=== PATIENT | male | born 1995 | race Caucasian/White ===

== ENCOUNTER 2020-10-05 16:05 | Outpatient (REF) | payer OTHER, SELFPAY ==
--- NOTE | 2020-10-05 17:39 | PFT_ITS ---
FLOWS: FEV1 of 109% of predicted at 4.52 L. FVC 102% predicted at 5.04 L. FEV1 to FVC ratio of 0.90. No bronchodilator response. LUNG VOLUMES: Total lung capacity 103% of predicted at 6.31 L. Residual volume 86% of predicted at 1.09 L. Slow vital capacity 108% of predicted at 5.22 L. Expiratory reserve volume 48% of predicted at 0.76 L. Diffusion capacity is normal. IMPRESSION: No obstructive or restrictive ventilatory defect. No bronchodilator response. Decreased expiratory reserve volume suggests extrathoracic restriction likely secondary to abdominal obesity. Michael Davis MD AP/MODL / [id number]
== END 2020-10-05 16:06 | disposition home or self-care (01) ==
LOC: HO.RESP 16:05
PROVIDERS: PCP Internal Medicine; Visit Provider Internal Medicine
DX: R05 Cough (principal)
CPT/HCPCS: 94060; 94727; 94729

== ENCOUNTER 2020-10-12 14:54 | Outpatient (REF) | payer OTHER, SELFPAY ==
--- NOTE | 2020-10-12 | PFT_ITS ---
SPIROMETRY: Forced vital capacity, FEV1, UDV48-61, and MVV are all normal. Post bronchodilator therapy, there is no change. CONCLUSION: The spirometry findings are normal. No evidence of obstructive pulmonary disorder. Lung volumes and diffusion capacity were not performed. MD SHERLY Sykes/MODL / [id number]
== END 2020-10-12 14:55 | disposition home or self-care (01) ==
LOC: HO.RESP 14:54
PROVIDERS: PCP Internal Medicine; Visit Provider Internal Medicine
DX: R05 Cough (principal)
CPT/HCPCS: 94070

== ENCOUNTER 2022-01-24 06:32 | Outpatient (REF) | payer OTHER, SELFPAY ==
[2022-01-24 11:36] LABS: Alanine Aminotransferase 57 U/L (0-40); Anion Gap 14 (12-20); Aspartate Amino Transferase 31 U/L (5-37); Blood Urea Nitrogen 13 mg/dL (9-16); Calcium 9.6 mg/dL (8.4-10.2); Carbon Dioxide 25 mmol/L (22-29); Chloride 106 mmol/L (96-108); Cholesterol 219 mg/dL; Estimated Glomerular Filt Rate > 60; Glucose Fasting 92 mg/dL (60-99); HDL Cholesterol 38 mg/dL; LDL Cholesterol Calculated 151 mg/dl; Potassium 4.4 mmol/L (3.3-5.1); Sodium 141 mmol/L (135-145); Triglycerides 151 mg/dL
[2022-01-25 08:11] LABS: HBS Num1 2.27 mIU/mL (0-7.99); HBc Num1 0.11 S/CO (0.00-0.79); HBsAGNum1 0.18 S/CO (0.00-0.99); HIV AB/AG Nonreactive (Nonreactive); HIV Num 1 0.07 S/CO (0.00-0.99); Hepatitis B Core Antibody Nonreactive (Nonreactive); Hepatitis B Surface Antigen Negative (Negative); ~HepC Num1 0.06 S/CO (0.00-0.79); ~Hepatitis B Surface Antibody NONREACTIVE (Nonreactive); ~Hepatitis C Antibody Nonreactive (Nonreactive)
== END 2022-01-24 06:33 | disposition home or self-care (01) ==
LOC: HO.HMGCLDS 06:32
PROVIDERS: Visit Provider Internal Medicine
DX: Z00.01 Encounter for general adult medical examination with abnormal findings (principal); Z11.4 Encounter for screening for human immunodeficiency virus [HIV]; Z11.3 Encounter for screening for infections with a predominantly sexual mode of transmission
CPT/HCPCS: 36415; 80048; 80061; 84450; 84460; 86704; 86706; 86803; 87340; 87389

== ENCOUNTER 2022-01-26 06:33 | Outpatient (REF) | payer OTHER, SELFPAY ==
[2022-01-26 13:07] LABS: CT PCR NOT DETECTED (Not Detect.); NG PCR NOT DETECTED (Not Detect.)
== END 2022-01-26 06:34 | disposition home or self-care (01) ==
LOC: HO.HMGCLDS 06:33
PROVIDERS: PCP Internal Medicine; Visit Provider Internal Medicine
DX: Z11.3 Encounter for screening for infections with a predominantly sexual mode of transmission (principal)
CPT/HCPCS: 87491; 87591

== ENCOUNTER 2023-03-30 01:44 | Emergency (ER) | payer OTHER, SELFPAY ==
[2023-03-30 01:47] VITALS: BP 156/100; PULSE 80; RESP 18; TEMP 36.9; O2SAT 98; BMI 37.9
--- NOTE | 2023-03-30 02:07 | ED.GENADULT ---
HPI - General Adult General Chief complaint: General Medical Stated complaint: eye inj from welding? Time Seen by Provider: 03/30/23 01:46 Source: patient Mode of arrival: ambulatory Limitations: no limitations History of Present Illness HPI narrative: Patient comes to the emergency room complaining of burning sensation in both eyes. 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 But people were wheeling in the room and he was not wearing any eye protection. He was there for 8 hours intermittently. When he got home, he started noticing that his eyes were very red and burning quite a bit. No discharge. No fever chills. Patient does not wear contact lenses Related Data Previous Rx's Medication Instructions Recorded budesonide 180 mcg/actuation 1 inh inhalation BID #1 ea 12/30/21 breath activated powder inhaler (Pulmicort Flexhaler) erythromycin 5 mg/gram (0.5 %) eye 0.5 inch ophthalmic (eye) TID 4 03/30/23 ointment days #3.5 grams Allergies Allergy/AdvReac Type Severity Reaction Status Date / Time No Known Allergies Allergy Verified 01/08/22 14:18 Review of Systems Review of Systems: Constitutional : No Weight loss, No Fever, No Chills, No Night Sweats, No Fatigue, No Malaise ENT/Mouth : No Hearing loss, No Ear Pain, No Nasal Congestion, No Sinus Pain, No Hoarseness, No sore throat, No Rhinorrhea, No Swallowing Difficulty Eyes: Complaining of bilateral eye burning and redness, No Foreign Body, No Discharge, No Vision Changes Cardiovascular : No Chest Pain, No SOB, No Dyspnea on Exertion, No Orthopnea, No Edema, No Palpitations Respiratory : No Cough, No Sputum, No Wheezing, No Smoke Exposure, No Dyspnea Gastrointestinal : No Nausea, No Vomiting, No Diarrhea, No Constipation, No abdominal Pain, No Hematochezia, No Melena Genitourinary : no irregular bleeding, No Dysuria, No Urinary Frequency, No Hematuria, No Urinary Incontinence, No Urgency, No Flank Pain, No Urinary Flow Changes, No Hesitancy Musculoskeletal : No joint pain, No Myalgias, No Joint Swelling Skin : No Skin Lesions, No rash Neuro : No Weakness, No Numbness, No Paresthesias, No Loss of Consciousness, No Dizziness, No Headache Psych : No Anxiety/Panic, No Depression, No SI/HI/AH/VH, No Social Issues, Heme/Lymph: No Bruising, No Bleeding,No Lymphadenopathy Endocrine : No Polyuria, No Polydipsia, No Temperature Intolerance [facility] Past Medical History Medical History COVID-19 vaccine series declined Immunization refused Left forearm fracture Eczema of both hands Recurrent dry cough Surgical History No pertinent past surgical history Family History Family History (Updated 01/08/22 @ 14:26 by Traci Goddard MD) Mother Myocardial infarction acute, Onset Age: 50 Father Diabetes mellitus Paternal Grandfather Lung cancer Social History Social History (Updated 01/08/22 @ 14:26 by Traci Goddard MD) Housing: House Alcohol intake: current Alcohol intake frequency: holidays/special occasions only Alcohol type: beer and wine Patient Tobacco Use Status: Never used Tobacco e-Cigarette/Vaping Use: Never Used service: No Current occupational status: employed Cognitive needs: No Hearing needs: No Vision needs: Yes Physical Exam ED Vital Signs: Vital Signs - 24 hr 03/30/23 01:47 Temperature 98.5 F Pulse Rate 80 Respiratory Rate 18 Blood Pressure 156/100 H Pulse Oximetry 98 Oxygen Delivery Method Room Air BMI result Body Mass Index 37.9 Const Other: Appearance: Alert. Oriented X3. No acute distress. Eyes: Pupils equal, round and reactive to light. Sclerae are erythematous. On fluorescein stain test, no ulcerations, negative Siobhan ENT: Pharynx normal. Neck: Normal inspection. Neck supple. No lymph nodes noted. No crepitus CVS: Normal heart rate and rhythm. Pulses normal. Normal S1 and S2 Respiratory: No respiratory distress. Breath sounds normal. No Wheezing. No rales Abdomen: Soft and nontender. No rigidity. No distention. Skin: Skin warm and dry. Normal skin color. Normal skin turgor. Extremities: No lower extremity edema. No Lacerations. No Rash Neuro: Oriented X 3. No motor deficit. No sensory deficit. Moving all extremities. No slurred speech. CN 2 through 12 grossly intact Psych: calm, cooperative, normal affect Medical Decision Making Medical Decision Making MDM Narrative: The physical exam with the patient. Patient likely has oxyhydrogen welder's flash -patient was given IM ketorolac -patient educated about wearing eye protection when somebody is willing even if he is not doing it himself. Differential Diagnosis Differential Diagnoses: The differential diagnosis associated with the presentation includes (A oxyhydrogen welder's flash, foreign body, infection) Discharge Plan Discharge Clinical Impression: Historical Guide's flash of both eyes Patient Disposition: Home, Self-Care Instructions: Corneal Flash [place] (ED) Additional Instructions: Please follow-up with your primary care physician tomorrow. If you have any worsening or new symptoms, please return to the emergency room or call 911 Prescriptions: New erythromycin 5 mg/gram (0.5 %) ointment 0.5 inch ophthalmic (eye) TID 4 Days Qty: 3.5 0RF No Action Pulmicort Flexhaler 180 mcg/actuation aerosol powdr breath activated 1 inh inhalation BID Qty: 1 0RF Stand Alone Forms: Work/School Release
[2023-03-30 02:11] VITALS: BP 119/70; PULSE 80; RESP 14; TEMP 36.5; O2SAT 98
--- NOTE | 2023-03-30 02:12 | PC.NURSE ---
Pt ca&ox4, no signs of distress. Pt reports 4/10 bilateral eye pain. Pts mother is at bedside. Provider in with pt. Plan of care ongoing.
[2023-03-30] MEDS: Ketorolac Tromethamine 60 MG/2 ML VIAL IM (02:16)
[2023-03-30] MEDS: Tetracaine HCl/PF 0.5% Oph Sol 4 ML DROPS 3 DROP EYE-BOTH (02:27)
[2023-03-30] MEDS: Fluorescein Sodium STRIP 1 STRIP EYE-BOTH (02:27)
--- NOTE | 2023-03-30 02:28 | PC.NURSE ---
Eye drops and strip administered by provider
--- NOTE | 2023-03-30 02:28 | PC.NURSE ---
Pt medicated per sep. plan of care ongoing.
== END 2023-03-30 02:44 | disposition home or self-care (01) ==
PROVIDERS: Emergency Provider Emergency Medicine; PCP Internal Medicine
DX: H16.133 Photokeratitis, bilateral (principal); Z79.899 Other long term (current) drug therapy
CPT/HCPCS: 96372; 99284; J1885

== ENCOUNTER 2023-04-17 10:19 | Outpatient (AMB) | payer OTHER, SELFPAY ==
[2023-04-17 10:22] VITALS: BP 122/83; PULSE 83; O2SAT 97; BMI 38.2
--- NOTE | 2023-04-17 10:22 | MHC.PC.OV ---
Vital Signs 04/17/23 10:22 Height 5 ft 6 in Weight 237 lb BMI 38.2 BP 122/83 Blood Pressure Location Rt brachial Position Sitting Pulse 83 Pulse Source Pulse Oximeter Pulse Oximetry (%) 97 Oxygen Delivery Method Room Air Intake Visit Reasons: Acid reflux concerns Intake Note: patient is here today for acid reflux concerns Allergies No Known Allergies Allergy (Verified 04/17/23 11:00) Medication List - Last Reconciled 04/17/23 by Traci Goddard MD No Known Home Meds Tobacco use date assessed: 04/17/23 Dental Screening Dental Screen Date: 04/17/23 Did you have a dental visit in the last 12 months?: Yes Did you have a dental problem in the last 6 months where you did not have access to dental care?: No Was dental information given to patient?: Patient has dentist HPI Acid reflux concerns HPI Details 27-year-old male here today complaining of recurrent dry cough usually after drinking water are after eating. He had a normal pulmonary function test done already. Denies any epigastric pain, no nausea, no change in bowel habits [facility] Medical History COVID-19 vaccine series declined Immunization refused Left forearm fracture Eczema of both hands Recurrent dry cough Surgical History No pertinent past surgical history Family History Mother Myocardial infarction acute, Onset Age: 50 Father Diabetes mellitus Paternal Grandfather Lung cancer Social History Housing: House Alcohol intake: current Alcohol intake frequency: holidays/special occasions only Alcohol type: beer and wine Patient Tobacco Use Status: Never used Tobacco e-Cigarette/Vaping Use: Never Used service: No Current occupational status: employed Cognitive needs: No Hearing needs: No Vision needs: Yes Questionnaire PHQ-9 Over the last 2 weeks, how often have you been bothered by any of the following problems? 1. Little interest or pleasure in doing things: not at all 2. Feeling down, depressed, or hopeless: not at all 3. Trouble falling or staying asleep, or sleeping too much: several days 4. Feeling tired or having little energy: not at all 5. Poor appetite or overeating: several days 6. Feeling bad about yourself - or that you are a failure or have let yourself or your family down: not at all 7. Trouble concentrating on things, such as reading the newspaper or watching television: more than half the days 8. Moving or speaking so slowly that other people could have noticed. Or the opposite - being so fidgety or restless that you have been moving around a lot more than usual: several days 9. Thoughts that you would be better off or of hurting yourself in some way: not at all Total score: 5 Source: Developed by Drs. Marco Gonzalez, Alicia Carlton, Neymar Betts and colleagues, with an educational rudy from [employer]. Thrive Questionnaire Date Thrive assessed: 04/17/23 I am a: Patient What is your living situation today?: I have a steady place to live Within the past 12 months, did the food you bought not last and you didn't have the money to get more?: Never true Within the past 12 months, did you worry whether your food would run out before you got money to buy more?: Never true Do you have trouble paying for medicines?: No Do you have trouble getting transportation to medical appointments?: No Do you have trouble paying your heating and electricity bill?: No Do you have trouble taking care of your child, family member or friend?: No Do you have trouble with day-to-day activities such as bathing, preparing meals, shopping, managing finances, etc.?: No Are you currently unemployed and looking for a job?: Yes Are you interested in more education?: No AUDIT C Alcohol Use Questionnaire (AUDIT-C) 1. How often do you have a drink containing alcohol?: Monthly or less 2. How many drinks containing alcohol do you have on a typical day when you are drinking?: 1 or 2 Total Score: 1 ANGEL-7 AMB Questionnaire ANGEL-7 Date ANGEL - 7 assessed: 04/17/23 Feeling nervous, anxious, or on edge: 0 = Not at all Not being able to stop or control worryin = Not at all Worrying too much about different things: 0 = Not at all Trouble relaxin = Not at all Being so restless that it is hard to sit still: 0 = Not at all Becoming easily annoyed or irritable: 0 = Not at all Feeling afraid as if something awful might happen: 0 = Not at all Total ANGEL-7 score (0-4 normal; 5-9 mild; 10-14 moderate; 15-21 severe): 0 Source: Developed by Drs. Marco Gonzalez, Alicia Carlton, Neymar Betts and colleagues, with an educational rudy from [employer]. Review of Systems Const All systems reviewed & are unremarkable except as noted in HPI and below Physical exam (Primary Care) Vital Signs: Last Vital Signs Pulse 83 04/17/23 10:22 BP 122/83 04/17/23 10:22 Pulse Ox 97 04/17/23 10:22 Oxygen Delivery Method Room Air 04/17/23 10:22 BMI result Body Mass Index 38.2 Tobacco/Smoking Status: Tobacco use Status Tobacco use date assessed 04/17/23 04/17/23 10:23 Patient Tobacco Use Status Never used Tobacco 04/17/23 10:23 e-Cigarette/Vaping Use Never Used 04/17/23 10:23 Thrive Assessment: Date of Thrive Assessment Date Thrive assessed 12/25/21 04/17/23 10:23 Const General: cooperative, healthy appearing, comfortable and no acute distress Nutritional Appearance: obese Orientation/consciousness: patient oriented x3 HENMT General nose exam: Normal external nose present and No nasal discharge present Face and sinus: Yes sinuses nontender and Yes face symmetric Mouth: Normal oral and palatal mucosa present, oropharynx normal and moist mucous membranes Neck Neck: Yes full ROM, Yes no lymphadenopathy and Yes supple Thyroid: Thyroid normal Resp Effort & Inspection: normal respiratory effort and able to speak in complete sentences Auscultation: clear to auscultation bilaterally Cardio Rate: regular rate Rhythm: regular rhythm Heart sounds: S1 normal heart sound present and S2 normal heart sound present GI Inspection: Yes obesity Palpation (GI): Soft to palpation, nontender, no guarding and no masses Auscultation: normal bowel sounds Neuro General: patient oriented x3 Immunizations Boostrix Tdap 2.5 Lf unit-8 mcg-5 Lf/0.5 mL intramuscular syringe Performing Provider: Traci Goddard MD Performing Location: [facility] Administered by: Maribel Alvares CMA on 04/17/23 11:14 Dose Route Admin Location Dispensed Lot Number Expiration Date NDC Information Assurance 0.5 mL IM Right Deltoid 0.5 mL [id number] 06/13/25 59597-822-31 [employer] VIS Given Date VIS Provided VIS Publication Date 04/17/23 Single Vaccine 21 Eligibility Eligibility Date Funding Source Not [facility] Eligible 04/17/23 Private Assessment and Plan Assessment & Plan (1) Recurrent dry cough: Code(s): R05 - Cough Plan: PFT done with methacholine Challenge came back with normal findings, will rule of reflux, ordered upper GI series. Empirically started on famotidine 40 mg per tablet to take 1 tablet half and are before eating once a day. Return to the clinic after upper GI series done Advised to avoid eating a lot a acidic, spicy foods especially before you sleeping at night. Do not sleep right away after eating, weight loss recommended (2) Need for Tdap vaccination: Code(s): Z23 - Encounter for immunization Plan: Tdap Orders: Orders [place] upper GI series Today R05 - Cough TDaP Immunization Today Z23 - Encounter for immunization Review Flu Vaccine not done: patient reason (Patient declined) Coding Level of Care Code Est Pt Level 3 (90111) Diagnoses Recurrent dry cough R05 Need for Tdap vaccination Z23
== END 2023-04-17 11:14 | disposition home or self-care (01) ==
PROVIDERS: PCP Internal Medicine; Visit Provider Internal Medicine
DX: R05.9 Cough, unspecified (principal); Z23 Encounter for immunization
CPT/HCPCS: 90471; 90715; 99213

== ENCOUNTER 2023-09-05 11:27 | Outpatient (AMB) | payer BC, SELFPAY ==
[2023-09-05 12:16] VITALS: BP 130/72; PULSE 85; O2SAT 97; BMI 40.7
--- NOTE | 2023-09-05 12:16 | A.OFFPC_ITS ---
Vital Signs 09/05/23 12:16 Height 5 ft 6 in Weight 252 lb BMI 40.7 BP 130/72 Blood Pressure Location Rt brachial Position Sitting Pulse 85 Pulse Source Pulse Oximeter Pulse Oximetry (%) 97 Oxygen Delivery Method Room Air Intake Visit Reasons: Acid Reflux Meds F/U Intake Note: pt is here to follow up for acid reflux meds Allergies No Known Allergies Allergy (Verified 09/05/23 12:37) Medication List - Last Reconciled 09/05/23 by Traci Goddard MD No Known Home Meds Tobacco use date assessed: 09/05/23 Dental Screening Dental Screen Date: 09/05/23 Did you have a dental visit in the last 12 months?: Yes Did you have a dental problem in the last 6 months where you did not have access to dental care?: No Was dental information given to patient?: Patient has dentist HPI Acid Reflux Meds F/U HPI Details 28-year-old male here today for follow-u p had still complaining of recurrent cough usually at night 0 when he drinks cold water. Denies shortness of breath, wheezing, chest pain, alteration in bowel habits, reported there was an order already for an upper GI series to be done last visit but patient states that he still has not received appointment for procedure.. Was placed on famotidine which she states helped somewhat. [facility] Medical History COVID-19 vaccine series declined Immunization refused Left forearm fracture Eczema of both hands Recurrent dry cough Surgical History No pertinent past surgical history Family History Mother Myocardial infarction acute, Onset Age: 50 Father Diabetes mellitus Paternal Grandfather Lung cancer Social History Housing: House Alcohol intake: current Alcohol intake frequency: holidays/special occasions only Alcohol type: beer and wine Patient Tobacco Use Status: Never used Tobacco e-Cigarette/Vaping Use: Never Used service: No Current occupational status: employed Cognitive needs: No Hearing needs: No Vision needs: Yes Questionnaire PHQ-9 Over the last 2 weeks, how often have you been bothered by any of the following problems? 1. Little interest or pleasure in doing things: several days 2. Feeling down, depressed, or hopeless: not at all 3. Trouble falling or staying asleep, or sleeping too much: not at all 4. Feeling tired or having little energy: not at all 5. Poor appetite or overeating: several days 6. Feeling bad about yourself - or that you are a failure or have let yourself or your family down: not at all 7. Trouble concentrating on things, such as reading the newspaper or watching television: several days 8. Moving or speaking so slowly that other people could have noticed. Or the opposite - being so fidgety or restless that you have been moving around a lot more than usual: not at all 9. Thoughts that you would be better off or of hurting yourself in some way: not at all Total score: 3 Depression Screening Interpretation: Negative Depression Screening Done: Yes 01354 - PHQ-9 Billing: Yes Source: Developed by Drs. Marco Gonzalez, Alicia Carlton, Neymar Betts and colleagues, with an educational rudy from [employer]. Thrive Questionnaire Date Thrive assessed: 09/05/23 I am a: Patient What is your living situation today?: I have a steady place to live Within the past 12 months, did the food you bought not last and you didn't have the money to get more?: Never true Within the past 12 months, did you worry whether your food would run out before you got money to buy more?: Never true Do you have trouble paying for medicines?: No Do you have trouble getting transportation to medical appointments?: No Do you have trouble paying your heating and electricity bill?: No Do you have trouble taking care of your child, family member or friend?: No Do you have trouble with day-to-day activities such as bathing, preparing meals, shopping, managing finances, etc.?: No Are you currently unemployed and looking for a job?: No Are you interested in more education?: No THRIVE Score: 0 AUDIT C Alcohol Use Questionnaire (AUDIT-C) 1. How often do you have a drink containing alcohol?: 2-4 times a month 2. How many drinks containing alcohol do you have on a typical day when you are drinking?: 1 or 2 3. How often do you have six or more drinks on one occasion?: Never Total Score: 2 ANGEL-7 AMB Questionnaire ANGEL-7 Date NAGEL - 7 assessed: 09/05/23 Feeling nervous, anxious, or on edge: 1 = Several days Not being able to stop or control worryin = Several days Worrying too much about different things: 1 = Several days Trouble relaxin = Not at all Being so restless that it is hard to sit still: 0 = Not at all Becoming easily annoyed or irritable: 0 = Not at all Feeling afraid as if something awful might happen: 0 = Not at all Total ANGEL-7 score (0-4 normal; 5-9 mild; 10-14 moderate; 15-21 severe): 3 Source: Developed by Drs. Marco Gonzalez, Alicia Carlton, Neymar Betts and colleagues, with an educational rudy from [employer]. ANGEL-7 Assessment Billing ANGEL-7 Assessment Tool: ANGEL-7 Assessment 18303 Review of Systems Const All systems reviewed & are unremarkable except as noted in HPI and below Reports as per HPI Physical exam (Primary Care) Vital Signs: Last Vital Signs Pulse 85 09/05/23 12:16 BP 130/72 09/05/23 12:16 Pulse Ox 97 09/05/23 12:16 Oxygen Delivery Method Room Air 09/05/23 12:16 BMI result Body Mass Index 40.7 Tobacco/Smoking Status: Tobacco use Status Tobacco use date assessed 09/05/23 09/05/23 12:21 Patient Tobacco Use Status Never used Tobacco 09/05/23 12:21 e-Cigarette/Vaping Use Never Used 09/05/23 12:21 PHQ-9: PHQ-9 Score PHQ-9: Total score 7 09/05/23 12:24 Depression Screening Interpretation: Negative Thrive Assessment: Date of Thrive Assessment Date Thrive assessed 09/05/23 09/05/23 12:24 Const General: comfortable and no acute distress Nutritional Appearance: obese Orientation/consciousness: patient oriented x3 HENMT General nose exam: Normal external nose present and No nasal discharge present Face and sinus: Yes face symmetric Mouth: Normal oral and palatal mucosa present, oropharynx normal and moist mucou s membranes Neck Neck: Yes full ROM, Yes no lymphadenopathy and Yes supple Thyroid: Thyroid normal Resp Effort & Inspection: normal respiratory effort and able to speak in complete sentences Auscultation: clear to auscultation bilaterally Cardio Rate: regular rate Rhythm: regular rhythm Heart sounds: S1 normal heart sound present and S2 normal heart sound present GI Inspection: Yes obesity Palpation (GI): Soft to palpation, nontender, no guarding and no masses Auscultation: normal bowel sounds Neuro General: patient oriented x3 Assessment and Plan Assessment & Plan (1) Recurrent dry cough: Code(s): R05 - Cough Plan: Had normal PFT done on last visit, will follow-up on appointment for his upper GI series. Discontinue famotidine and switched to pantoprazole for possible reflux 40 mg per capsule to take once a day an hour before eating. Stressed importance of avoidance of triggers for heartburn, and do not lie down right away after eating Medications: New pantoprazole Take an hour before eating supper or before bedtime 40 mg PO DAILY 30 tabs 1RF Coding Level of Care Code Est Pt Level 3 (18218) Diagnoses Recurrent dry cough R05 Additional Codes ANGEL-7 Assessment Billing - ANGEL-7 Assessment Tool: ANGEL-7 Assessment 40579 ([id number])
== END 2023-09-05 13:22 | disposition home or self-care (01) ==
PROVIDERS: PCP Internal Medicine; Visit Provider Internal Medicine
DX: R05.9 Cough, unspecified (principal)
CPT/HCPCS: 99213

== ENCOUNTER 2024-01-22 08:57 | Outpatient (AMB) | payer BC, SELFPAY ==
--- NOTE | 2024-01-22 09:01 | A.OFFPC_ITS ---
Vital Signs 01/22/24 09:03 Height 5 ft 6 in Weight 250 lb BMI 40.3 BP 120/68 Blood Pressure Location Lt brachial Position Sitting Pulse 84 Pulse Source Pulse Oximeter Pulse Oximetry (%) 95 Oxygen Delivery Method Room Air Intake Visit Reasons: PE Intake Note: Pt is here today for his PE Allergies No Known Allergies Allergy (Verified 01/22/24 09:08) Medication List - Last Reconciled 01/22/24 by Traci Goddard MD pantoprazole 40 mg PO DAILY Tobacco use date assessed: 01/22/24 Dental Screening Dental Screen Date: 01/22/24 Did you have a dental visit in the last 12 months?: No Did you have a dental problem in the last 6 months where you did not have access to dental care?: No Was dental information given to patient?: Patient has dentist HPI PE HPI Details 28-year-old male with history of hyperli pidemia, and heartburn currently on pantoprazole 40 mg daily, here today for his physical exam. He has been feeling well with no complaints at present time. He is up-to-date with his Tdap but has not had his COVID vaccination or does he get flu shots. [facility] Medical History Morbid obesity with BMI of 40.0-44.9, adult Hyperlipidemia LDL goal <100 COVID-19 vaccine series declined Immunization refused Left forearm fracture Eczema of both hands Recurrent dry cough Surgical History No pertinent past surgical history Family History Mother Myocardial infarction acute, Onset Age: 50 Father Diabetes mellitus Paternal Grandfather Lung cancer Social History Housing: House Alcohol intake: current Alcohol intake frequency: holidays/special occasions only Alcohol type: beer and wine Patient Tobacco Use Status: Never used Tobacco e-Cigarette/Vaping Use: Never Used service: No Current occupational status: employed 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 1. Little interest or pleasure in doing things: not at all 2. Feeling down, depressed, or hopeless: not at all 3. Trouble falling or staying asleep, or sleeping too much: several days 4. Feeling tired or having little energy: not at all 5. Poor appetite or overeating: not at all 6. Feeling bad about yourself - or that you are a failure or have let yourself or your family down: not at all 7. Trouble concentrating on things, such as reading the newspaper or watching television: not at all 8. Moving or speaking so slowly that other people could have noticed. Or the opposite - being so fidgety or restless that you have been moving around a lot more than usual: not at all 9. Thoughts that you would be better off or of hurting yourself in some way: not at all Total score: 1 Depression Screening Interpretation: Negative Depression Screening Done: Yes 37810 - PHQ-9 Billing: Yes Source: Developed by Drs. Marco Gonzalez, Alicia Carlton, Neymar Betts and colleagues, with an educational rudy from [employer]. Thrive Questionnaire Date Thrive assessed: 01/22/24 I am a: Patient What is your living situation today?: I have a steady place to live Within the past 12 months, did the food you bought not last and you didn't have the money to get more?: Never true Within the past 12 months, did you worry whether your food would run out before you got money to buy more?: Never true Do you have trouble paying for medicines?: No Do you have trouble getting transportation to medical appointments?: No Do you have trouble paying your heating and electricity bill?: No Do you have trouble taking care of your child, family member or friend?: No Do you have trouble with day-to-day activities such as bathing, preparing meals, shopping, managing finances, etc.?: No Are you currently unemployed and looking for a job?: No Are you interested in more education?: I choose not to answer this question Please select the resources that you would like help with: Housing/Correction Currently or been in a relationship where the following occur: No concerns reported THRIVE Score: 0 AUDIT C Alcohol Use Questionnaire (AUDIT-C) 1. How often do you have a drink containing alcohol?: 2-4 times a month 2. How many drinks containing alcohol do you have on a typical day when you are drinking?: 1 or 2 3. How often do you have six or more drinks on one occasion?: Never Total Score: 2 NAGEL-7 AMB Questionnaire ANGEL-7 Date ANGEL - 7 assessed: 01/22/24 Feeling nervous, anxious, or on edge: 0 = Not at all Not being able to stop or control worryin = Not at all Worrying too much about different things: 0 = Not at all Trouble relaxin = Not at all Being so restless that it is hard to sit still: 0 = Not at all Becoming easily annoyed or irritable: 0 = Not at all Feeling afraid as if something awful might happen: 0 = Not at all Total ANGEL-7 score (0-4 normal; 5-9 mild; 10-14 moderate; 15-21 severe): 0 Source: Developed by Drs. Marco Gonzalez, Alicia Carlton, Neymar Betts and colleagues, with an educational rudy from [employer]. ANGEL-7 Assessment Billing ANGEL-7 Assessment Tool: ANGEL-7 Assessment 06094 Review of Systems Const Denies body aches, Denies fatigue, Denies fever(s), Denies headache(s) and Denies weakness Eyes Details: Up-to-date with his eye exam, sees lens craft ers them all Denies change in vision and Reports requires corrective lenses ENT Denies dizziness, Denies headache(s), Denies nasal congestion, Denies nasal discharge and Denies sore throat Card Denies chest pain, Denies lightheadedness, Denies palpitations, Denies dyspnea and Denies dyspnea on exertion Resp Denies chest congestion, Denies excessive phlegm production, Denies pain on inspiration, Denies dyspnea, Denies dyspnea on exertion and Denies wheezing GI Denies abdominal pain, Denies change in bowel habits and Denies heartburn Denies hematuria, Denies difficulty urinating, Denies dysuria, Denies urinary frequency and Denies urinary urgency Musc Reports no additional complaints Skin/Breast Denies breast pain, Denies breast mass, Denies lesions and Denies rash Neuro Denies dizziness, Denies headache(s) and Denies weakness Psych Reports no additional complaints Endo Denies fatigue, Denies polydipsia, Denies polyuria and Denies palpitations Tunde/Lymph Denies easy bruising Aller/Immun Denies seasonal rhinorrhea and Denies wheezing Physical exam (Primary Care) Vital Signs: Last Vital Signs Pulse 84 01/22/24 09:03 BP 120/68 01/22/24 09:03 Pulse Ox 95 01/22/24 09:03 Oxygen Delivery Method Room Air 01/22/24 09:03 BMI result Body Mass Index 40.3 Tobacco/Smoking Status: Tobacco use Status Tobacco use date assessed 01/22/24 01/22/24 09:05 Patient Tobacco Use Status Never used Tobacco 01/22/24 09:05 e-Cigarette/Vaping Use Never Used 01/22/24 09:05 PHQ-9: PHQ-9 Score PHQ-9: Total score 1 01/22/24 09:05 Depression Screening Interpretation: Negative Thrive Assessment: Date of Thrive Assessment Date Thrive assessed 01/22/24 01/22/24 09:05 Currently or been in a relationship where the following occur: No concerns reported Advance Care Planning discussion: Completed/Scanned Date of discussion: 01/22/24 Who was present: Patient Forms completed: Health Care Proxy Time spent: 16-45 minutes Actual minutes spent: 16 Const General: comfortable and no acute distress Nutritional Appearance: obese Orientation/consciousness: patient oriented x3 HENMT General nose exam: Normal external nose present and No nasal discharge present Face and sinus: Yes face symmetric Mouth: Normal oral and palatal mucosa present, oropharynx normal and moist mucous membranes Neck Neck: Yes full ROM, Yes no lymphadenopathy and Yes supple Thyroid: Thyroid normal Resp Effort & Inspection: normal respiratory effort and able to speak in complete sentences Auscultation: clear to auscultation bilaterally Cardio Rate: regular rate Rhythm: regular rhythm Heart sounds: S1 normal heart sound present and S2 normal heart sound present GI Inspection: Yes obesity Palpation (GI): Soft to palpation, nontender, no guarding and no masses Auscultation: normal bowel sounds General: Yes no CVA tenderness Male General Exam: Yes normal external exam Back/Spine/Pelvis Back: no CVA tenderness and No back tenderness Skin General skin exam: no rashes or lesions noted Neuro General: patient oriented x3, gait normal, tone normal, moves all extremities, Normal light touch and pain sensation, no focal motor deficits and CN's II-XI intact bilaterally Extrem General: Yes normal to inspection, Yes full ROM, Yes no joint enlargement, Yes no clubbing, cyanosis or edema and Yes normal gait Psych Appearance: well kempt Mental Status: mental status grossly normal Speech and movement: Normal speech and movement present Affect: normal affect Attitude: cooperative Thought process: Normal thought process present Thought content: Normal thought content present Assessment and Plan Assessment & Plan (1) Annual visit for general adult medical examination with abnormal findings: Code(s): Z00.01 - Encounter for general adult medical examination with abnormal findings Plan: Will check appropriate labs. Recommended dental visit every 6 months and regular eye exams, at least every 2 years. Take adequate calcium in diet and vitamin-D 3 at 2000 IU per cap once a day, in addition to weight-bearing exercises to help maintain good muscle tone and weight control. Instructed to do testicular exam to check for any mass. Up-to-date with his Tdap, advised to get yearly flu shots, refuses to take COVID vaccines. (2) Hyperlipidemia LDL goal <100: Code(s): E78.5 - Hyperlipidemia, unspecified Plan: Fasting lipid panel ordered, reinforced importance of following a low- cholesterol diet and getting regular exercise. He does go to the gym regularly now (3) Advanced directives, counseling/discussion: Code(s): Z71.89 - Other specified counseling Plan: Initiated the conversation about Advanced Directives. Advanced Directives help patients prepare for current and future decisions about their medical treatment and place of care. Discussed with patient that it is a process where a patients current condition and prognosis are reviewed, their wishes for information regarding their illness are elicited, and likely medical dilemmas are presented and options discussed. Healthcare proxy form completed today. The form can be amended as needed, reviewed yearly and make changes as needed (4) Morbid obesity with BMI of 40.0-44.9, adult: Code(s): E66.01 - Morbid (severe) obesity due to excess calories; Z68.41 - Body mass index [BMI] 40.0-44.9, adult Plan: Recommended focusing on improving your health instead of dieting. : Eat Mediterranean diet, limit foods high in fat, sugar, and calories, eat slowly, pay attention to portion sizes, plan your meals ahead of time, continue with regular physical activity 150 minutes of moderate intensity exercise or 90 minutes/week of vigorous exercise Orders: Orders Glucose Fasting Today E78.5 - Hyperlipidemia, unspecified, Z13.1 - Encounter for screening for diabetes mellitus Lipid Panel Today E78.5 - Hyperlipidemia, unspecified, Z13.1 - Encounter for screening for diabetes mellitus Alanine Aminotransferase Today E78.5 - Hyperlipidemia, unspecified, Z13.1 - Encounter for screening for diabetes mellitus Aspartate Amino Transferase Today E78.5 - Hyperlipidemia, unspecified, Z13.1 - Encounter for screening for diabetes mellitus Coding Level of Care Code Est Pt Prev Care [id number]) Diagnoses Annual visit for general adult medical examination with abnormal findings Z00.01 Hyperlipidemia LDL goal <100 E78.5 Advanced directives, counseling/discussion Z71.89 Morbid obesity with BMI of 40.0-44.9, adult E66.01; Z68.41 Additional Codes ANGEL-7 Assessment Billing - ANGEL-7 Assessment Tool: ANGEL-7 Assessment 89510 ([id number]) Vital Signs *Quality* - Advance Care Planning discussion: Completed/Scanned ([id number]) Vital Signs *Quality* - Time spent: 16-45 minutes ([id number])
[2024-01-22 09:03] VITALS: BP 120/68; PULSE 84; O2SAT 95; BMI 40.3
== END 2024-01-22 09:28 | disposition home or self-care (01) ==
PROVIDERS: PCP Internal Medicine; Visit Provider Internal Medicine
DX: Z00.00 Encounter for general adult medical examination without abnormal findings (principal); E66.01 Morbid (severe) obesity due to excess calories; Z68.41 Body mass index [BMI] 40.0-44.9, adult; E78.5 Hyperlipidemia, unspecified
CPT/HCPCS: 1123F; 99395; 99497

== ENCOUNTER 2024-01-24 06:37 | Outpatient (REF) | payer BC, SELFPAY ==
[2024-01-24 11:45] LABS: Alanine Aminotransferase 93 U/L (0-40); Aspartate Amino Transferase 43 U/L (5-37); Cholesterol 191 mg/dL (<200); Glucose Fasting 99 mg/dL (60-99); HDL Cholesterol 32 mg/dL (>40); LDL Cholesterol Calculated 115 mg/dL (<100); Triglycerides 221 mg/dL (<150)
== END 2024-01-24 06:38 | disposition home or self-care (01) ==
LOC: HO.HMGCLDS 06:37
PROVIDERS: PCP Internal Medicine; Visit Provider Internal Medicine
DX: E78.5 Hyperlipidemia, unspecified (principal); Z13.1 Encounter for screening for diabetes mellitus
CPT/HCPCS: 36415; 80061; 82947; 84450; 84460

== ENCOUNTER 2025-03-03 11:05 | Outpatient (AMB) | payer BC, SELFPAY ==
--- NOTE | 2025-03-03 11:45 | MHC.PC.OV ---
Vital Signs 03/03/25 11:49 Height 5 ft 6 in Weight 254 lb BMI 41.0 BP 132/90 H Blood Pressure Location Lt brachial Position Sitting Respiration 16 Pulse 80 Pulse Source Pulse Oximeter Temp 98.1 F Temp Source Oral Pulse Oximetry (%) 98 Oxygen Delivery Method Room Air Intake Visit Reasons: PE Intake Note: Pt is here today for his PE Allergies No Known Allergies Allergy (Verified 03/03/25 12:09) Medication List - Last Reconciled 03/03/25 by Traci Goddard MD No Known Home Meds Tobacco use date assessed: 03/03/25 Dental Screening Dental Screen Date: 03/03/25 Did you have a dental visit in the last 12 months?: No Did you have a dental problem in the last 6 months where you did not have access to dental care?: No Was dental information given to patient?: Patient has dentist HPI PE HPI Details - The patient is a 29-year-old male presenting today for his physical exam. - Bilateral shoulder weakness: The patient reports that the weakness began after starting a new exercise regimen with a strainer cleaner. - initially resolved with rest, but recurred aggressively, affecting his ability to lift objects. - He experiences numbness and fatigue in the arms during certain movements, suggesting a possible pinched nerve. - Borderline hypertension: The patient's blood pressure was noted to be 132 mmHg, which is borderline elevated. - He has gained some weight and has not been attending the gym regularly, which may contribute to his blood pressure. - Astigmatism: The patient has a history of astigmatism in the right eye and wears corrective lenses. - He has not visited an eye doctor this year but usually does so annually. - Elevated cholesterol levels: Previous lab results indicated elevated cholesterol, and a follow-up test is planned. - Acid reflux: The patient occasionally experiences acid reflux but denies any significant gastrointestinal symptoms. [facility] Medical History Morbid obesity with BMI of 40.0-44.9, adult Hyperlipidemia LDL goal <100 COVID-19 vaccine series declined Immunization refused Left forearm fracture Eczema of both hands Recurrent dry cough Surgical History No pertinent past surgical history Family History Mother Myocardial infarction acute, Onset Age: 50 Father Diabetes mellitus Paternal Grandfather Lung cancer Social History Housing: House Alcohol intake: current Alcohol intake frequency: holidays/special occasions only Alcohol type: beer and wine Patient Tobacco Use Status: Never used Tobacco e-Cigarette/Vaping Use: Never Used service: No Current occupational status: employed 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 1. Little interest or pleasure in doing things: not at all 2. Feeling down, depressed, or hopeless: not at all 3. Trouble falling or staying asleep, or sleeping too much: not at all 4. Feeling tired or having little energy: several days 5. Poor appetite or overeating: several days 6. Feeling bad about yourself - or that you are a failure or have let yourself or your family down: not at all 7. Trouble concentrating on things, such as reading the newspaper or watching television: several days 8. Moving or speaking so slowly that other people could have noticed. Or the opposite - being so fidgety or restless that you have been moving around a lot more than usual: not at all 9. Thoughts that you would be better off or of hurting yourself in some way: not at all Total score: 3 Depression Screening Interpretation: Negative Depression Screening Done: Yes 01937 - PHQ-9 Billing: Yes Source: Developed by Drs. Marco Gonzalez, Alicia Carlton, Neymar Betts and colleagues, with an educational rudy from [employer]. Thrive Questionnaire Date Thrive assessed: 02/27/25 I am a: Patient What is your living situation today?: I have a steady place to live Within the past 12 months, did the food you bought not last and you didn't have the money to get more?: Never true Within the past 12 months, did you worry whether your food would run out before you got money to buy more?: Never true Do you have trouble paying for medicines?: No Do you have trouble getting transportation to medical appointments?: No Do you have trouble paying your heating and electricity bill?: No Do you have trouble taking care of your child, family member or friend?: No Do you have trouble with day-to-day activities such as bathing, preparing meals, shopping, managing finances, etc.?: No Are you currently unemployed and looking for a job?: No Are you interested in more education?: No Please select the resources that you would like help with: None Currently or been in a relationship where the following occur: No concerns reported THRIVE Score: 0 AUDIT C Alcohol Use Questionnaire (AUDIT-C) 1. How often do you have a drink containing alcohol?: 2-4 times a month 2. How many drinks containing alcohol do you have on a typical day when you are drinking?: 1 or 2 3. How often do you have six or more drinks on one occasion?: Never Total Score: 2 Score Reviewed/Action Taken: Yes ANGEL-7 AMB Questionnaire ANGEL-7 Date ANGEL - 7 assessed: 03/03/25 Feeling nervous, anxious, or on edge: 0 = Not at all Not being able to stop or control worryin = Not at all Worrying too much about different things: 0 = Not at all Trouble relaxin = Several days Being so restless that it is hard to sit still: 2 = More than half the days Becoming easily annoyed or irritable: 0 = Not at all Feeling afraid as if something awful might happen: 0 = Not at all Total ANGEL-7 score (0-4 normal; 5-9 mild; 10-14 moderate; 15-21 severe): 3 Source: Developed by Drs. Marco Gonzalez, Alicia Carlton, Neymar Betts and colleagues, with an educational rudy from [employer]. ANGEL-7 Assessment Billing ANGEL-7 Assessment Tool: ANGEL-7 Assessment 95000 Review of Systems Const Denies fatigue, Denies fever(s), Denies headache(s) and Denies weakness Eyes Details: GOES [place] Denies change in vision and Reports requires corrective lenses ENT Denies dizziness, Denies headache(s), Denies nasal congestion, Denies nasal discharge and Denies sore throat Card Denies chest pain, Denies lightheadedness, Denies palpitations, Denies dyspnea and Denies dyspnea on exertion Resp Denies chest congestion, Denies excessive phlegm production, Denies pain on inspiration, Denies dyspnea, Denies dyspnea on exertion and Denies wheezing GI Denies abdominal pain, Denies change in bowel habits and Denies heartburn Denies hematuria, Denies difficulty urinating, Denies dysuria, Denies urinary frequency and Denies urinary urgency Musc Reports as per HPI Skin/Breast Denies lesions and Denies rash Neuro Denies dizziness, Denies headache(s) and Denies weakness Psych Reports no additional complaints Endo Denies fatigue, Denies polydipsia, Denies polyuria and Denies palpitations Tudne/Lymph Denies easy bruising Aller/Immun Denies seasonal rhinorrhea and Denies wheezing Physical exam (Primary Care) Vital Signs: Last Vital Signs Temp 98.1 F 03/03/25 11:49 Pulse 80 03/03/25 11:49 Resp 16 03/03/25 11:49 BP 132/90 H 03/03/25 11:49 Pulse Ox 98 03/03/25 11:49 Oxygen Delivery Method Room Air 03/03/25 11:49 BMI result Body Mass Index 41.0 Tobacco/Smoking Status: Tobacco use Status Tobacco use date assessed 03/03/25 03/03/25 11:53 Patient Tobacco Use Status Never used Tobacco 03/03/25 11:46 e-Cigarette/Vaping Use Never Used 03/03/25 11:46 PHQ-9: PHQ-9 Score PHQ-9: Total score 3 03/03/25 12:11 Depression Screening Interpretation: Negative Thrive Assessment: Date of Thrive Assessment Date Thrive assessed 02/27/25 03/03/25 11:46 Currently or been in a relationship where the following occur: No concerns reported Const General: no acute distress Nutritional Appearance: obese Orientation/consciousness: patient oriented x3 [facility] General nose exam: Normal external nose present Face and sinus: Yes face symmetric Mouth: Normal oral and palatal mucosa present and moist mucous membranes Neck Neck: Yes full ROM, Yes no lymphadenopathy and Yes supple Thyroid: Thyroid normal Resp Effort & Inspection: normal respiratory effort and able to speak in complete sentences Auscultation: clear to auscultation bilaterally Cardio Rate: regular rate Rhythm: regular rhythm Heart sounds: S1 normal heart sound present and S2 normal heart sound present GI Inspection: Yes obesity Palpation (GI): Soft to palpation, nontender, no guarding and no masses Auscultation: normal bowel sounds General: Yes no CVA tenderness Male General Exam: Yes normal external exam Back/Spine/Pelvis Back: no CVA tenderness and No back tenderness Skin General skin exam: no rashes or lesions noted Neuro General: patient oriented x3, gait normal, tone normal, moves all extremities, Normal light touch and pain sensation, no focal motor deficits and CN's II-XI intact bilaterally Extrem General: Yes normal to inspection, Yes full ROM, Yes no joint enlargement, Yes no clubbing, cyanosis or edema and Yes normal gait Psych Appearance: well kempt Mental Status: mental status grossly normal Speech and movement: Normal speech and movement present Affect: normal affect Coding Level of Care Code Est Pt Prev Care 18-39y([id number]) Diagnoses Annual visit for general adult medical examination with abnormal findings Z00.01 Hyperlipidemia LDL goal <100 E78.5 Morbid obesity with BMI of 40.0-44.9, adult E66.01; Z68.41 Weakness of both shoulders R29.898 Additional Codes ANGEL-7 Assessment Billing - ANGEL-7 Assessment Tool: ANGEL-7 Assessment 81640 ([id number]) PHQ-9 - 99742 - PHQ-9 Billing: Yes ([id number]) Assessment & Plan Assessment & Plan (1) Annual visit for general adult medical examination with abnormal findings: Code(s): Z00.01 - Encounter for general adult medical examination with abnormal findings (2) Hyperlipidemia LDL goal <100: Code(s): E78.5 - Hyperlipidemia, unspecified Category: Medical (3) Morbid obesity with BMI of 40.0-44.9, adult: Code(s): E66.01 - Morbid (severe) obesity due to excess calories; Z68.41 - Body mass index [BMI] 40.0-44.9, adult Category: Medical (4) Weakness of both shoulders: Code(s): R29.898 - Other symptoms and signs involving the musculoskeletal system Plan Patient was informed and verbally consented to the use of an ambient scribe for clinic note documentation during this visit. 1. Bilateral Shoulder Weakness Referral to physical therapy is planned to address bilateral shoulder weakness, focusing on strengthening exercises and improving range of motion. 2. Borderline Hypertension The patient is advised to monitor blood pressure and increase physical activity, along with dietary modifications and weight management. 3. Elevated Cholesterol Levels Follow-up blood work is ordered to reassess cholesterol levels, with encouragement to maintain a healthy diet and exercise. 4. Astigmatism The patient is advised to schedule an eye examination to monitor astigmatism and update corrective lenses. 5. Acid Reflux The patient is advised to monitor dietary triggers and consider lifestyle modifications for managing acid reflux. Orders: Orders Basic Metabolic Panel Fasting 03/03/25 E66.01 - Morbid (severe) obesity due to excess calories, E78.5 - Hyperlipidemia, unspecified, Z00.01 - Encounter for general adult medical examination with abnormal findings, Z13.1 - Encounter for screening for diabetes mellitus, Z68.41 - Body mass index [BMI] 40.0-44.9, adult Aspartate Amino Transferase 03/03/25 E66.01 - Morbid (severe) obesity due to excess calories, E78.5 - Hyperlipidemia, unspecified, Z00.01 - Encounter for general adult medical examination with abnormal findings, Z13.1 - Encounter for screening for diabetes mellitus, Z68.41 - Body mass index [BMI] 40.0-44.9, adult Lipid Panel 03/03/25 E66.01 - Morbid (severe) obesity due to excess calories, E78.5 - Hyperlipidemia, unspecified, Z00.01 - Encounter for general adult medical examination with abnormal findings, Z13.1 - Encounter for screening for diabetes mellitus, Z68.41 - Body mass index [BMI] 40.0-44.9, adult Alanine Aminotransferase 03/03/25 E66.01 - Morbid (severe) obesity due to excess calories, E78.5 - Hyperlipidemia, unspecified, Z00.01 - Encounter for general adult medical examination with abnormal findings, Z13.1 - Encounter for screening for diabetes mellitus, Z68.41 - Body mass index [BMI] 40.0-44.9, adult PT Evaluation and Treatment 03/03/25 R29.898 - Other symptoms and signs involving the musculoskeletal system
[2025-03-03 11:49] VITALS: BP 132/90; PULSE 80; RESP 16; TEMP 36.7; O2SAT 98; BMI 41.0
== END 2025-03-03 12:47 | disposition home or self-care (01) ==
LOC: HO.HMCC 11:06
PROVIDERS: PCP Internal Medicine; Visit Provider Internal Medicine
DX: Z00.01 Encounter for general adult medical examination with abnormal findings (principal); E78.5 Hyperlipidemia, unspecified; E66.01 Morbid (severe) obesity due to excess calories; Z68.41 Body mass index [BMI] 40.0-44.9, adult; R29.898 Other symptoms and signs involving the musculoskeletal system

== ENCOUNTER → 2025-03-03 11:05 | Outpatient (BNVA) | payer BC, SELFPAY | PROVIDERS: PCP Internal Medicine; Visit Provider Internal Medicine | DX: Z00.01 Encounter for general adult medical examination with abnormal findings (principal); H52.201 Unspecified astigmatism, right eye; E78.00 Pure hypercholesterolemia, unspecified; K21.9 Gastro-esophageal reflux disease without esophagitis; E78.5 Hyperlipidemia, unspecified; E66.01 Morbid (severe) obesity due to excess calories; R29.898 Other symptoms and signs involving the musculoskeletal system; Z68.41 Body mass index [BMI] 40.0-44.9, adult | CPT/HCPCS: 96127 ==